=== PATIENT | female | born 1950 | race Caucasian/White ===

== ENCOUNTER → 2017-03-06 09:58 | Outpatient (CLI) | payer MEDICARE, MEDICAID ==
--- NOTE | ~2017-03-06 | EEG ---
PATIENT:ERNST ROSS DATE OF SERVICE: 03/06/17 MEDICAL RECORD: [id number] DATE OF : 46 LOCATION: D.LAB ADMISSION DATE: 03/06/17 REFERRING PHYSICIAN: INTERPRETING PHYSICIAN: BAIRON GARZA MD DATE OF SERVICE: 03/07/2017 Referred by myself as an outpatient. ELECTROENCEPHALOGRAM NUMBER: [id number] DATE OF EXAMINATION: 03/06/2017 at 11:50 a.m. TECHNICAL DATA: This electroencephalographic recording consisted of approximately 20 minutes of data collection utilizing the international 10/20 system of electrode placement and both referential and non-referential montages. Sixteen channels of electrocerebral recording are accompanied by a 17th channel dedicated to the electrocardiographic rhythm and 2 channels of electromyographic recording. Recording is performed entirely in the waking state utilizing activation by photic stimulation. ELECTROENCEPHALOGRAPHIC DATA: The awake state comprises the entirety of the recorded electrocerebral activity. The technicians have difficulty getting the patient to relax and stay still to stop talking and relax. Electromyographic artifact is prominent and rapid eye movements are seen throughout. The posterior dominant background is relatively suppressed as the patient do not close her eyes during the examination. Brief intervals 8-9 Hz, posterior dominant alpha appears with a consistent pattern does not established. No focal slowing is identified. No epileptiform discharges are seen. Photic stimulation induces no abnormal change in the recorded electrocerebral activity. INTERPRETATION: Suboptimal study (awake). This is a suboptimal study secondary to difficulties and gaining the patient's cooperation from the study. The posterior dominant background does not well established with the patient does not relax and close her eyes during the study making this difficult to verify. For a brief period intervals, it appears that there is a posterior dominant background in the alpha range. 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
[2017-03-06 10:46] LABS: BASOPHILS 0.2 % (0-2); EOSINOPHILS 1.4 % (0-7); HEMATOCRIT 39.4 % (36.0-48.0); HEMOGLOBIN 13.2 g/dL (12-16); IMMATURE GRANULOCYTES 0.1 % (0-5); MCH 29.6 pg (26.0-34.0); MCHC 33.5 g/dL (31.0-37.0); MCV 88.3 fL (80.0-100.0); MEAN PLATELET VOLUME 9.5 fL (7.4-10.4); MONOCYTES 5.6 % (2-11); NEUTROPHILS 74.7 % (40-80); PLATELET COUNT 177 10x3/uL (130-400); RBC 4.46 10x6/uL (4.00-5.40); RDW 12.8 % (11.5-14.5); WBC 8.3 10x3/uL (4.8-10.8)
[2017-03-06 11:09] LABS: ALBUMIN 4.1 g/dL (3.4-5.0); ALKALINE PHOSPHATASE 90 U/L (46-116); ALT (SGPT) 19 U/L (10-68); CALC OSMOLALITY 285 mosm/kg (275-300); CALCIUM 9.7 mg/dL (8.5-10.1); CARBON DIOXIDE 32.4 mmol/L (21.0-32.0); CHLORIDE - SERUM 102 mmol/L (98-107); CREATININE - SERUM 0.8 mg/dL (0.6-1.3); GLUCOSE 139 mg/dL (74-106); POTASSIUM - SERUM 4.2 mmol/L (3.5-5.1); PROTEIN - SERUM 8.1 g/dL (6.4-8.2); SODIUM 141 mmol/L (136-145); T4 THYROXINE 10.8 ug/dL (4.7-13.3); THYROID STIMULATING HORMONE 0.94 uIU/mL (0.36-3.74); UREA NITROGEN 22 mg/dL (7-18); eGFR NON AFRICAN AMERICAN 75 mL/min (90-120)
[2017-03-07 06:13] LABS: RAPID PLASMA REAGIN Non Reactive (Non Reactive)
[2017-03-07 07:23] LABS: FOLATE (FOLIC ACID) - SERUM >20.0 ng/mL (>3.0)
== END | disposition home or self-care (01) ==
LOC: D.LAB 09:58 → D.CN 10:00 → D.LAB 10:00 → D.CN 11:00
PROVIDERS: Psychiatry & Neurology Neurology
DX: F71 Moderate intellectual disabilities (principal); E03.9 Hypothyroidism, unspecified